=== PATIENT | female | born 1940 | race Caucasian/White ===

== ENCOUNTER → 2016-05-19 | Outpatient (CLI) | payer OTHER ==
--- NOTE | 2016-05-19 18:17 | DX ---
Right 5th Toe (3 Views, at 2:13 p.m.) Clinical History: 75-year-old female presenting for follow up of a 5th toe fracture sustained on 2015. ICD-10 Diagnostic Code: S92.501A. Comparison Study: Right 5th toe, dated March 31, 2016. Findings: There has been periosteal resorption along the site of the previously-noted transverse nond isplaced fracture of the midportion of the distal phalanx of the 5th toe. There is no bridging callus . There is some mild narrowing and subchondral sclerosis at the 5th toe interphalangeal joint. There some mild soft tissue swelling. Impression: Further periosteal resorption involving the previously-noted nondisplaced fracture throu gh the midportion of the 5th toe distal phalanx, with no bridging callus, compared to March 31 16.
== END ==
LOC: BMCIMAGING 14:16
PROVIDERS: ATTEND Podiatrist Foot & Ankle Surgery
DX: S92.504D Nondisplaced unspecified fracture of right lesser toe(s), subsequent encounter for fracture with routine healing (principal)

== ENCOUNTER → 2016-07-18 | Outpatient (CLI) | payer OTHER | LOC: FIMAGING 12:50 | PROVIDERS: ATTEND Orthopaedic Surgery | DX: Z01.818 Encounter for other preprocedural examination (principal); M16.0 Bilateral primary osteoarthritis of hip; M51.36 Other intervertebral disc degeneration, lumbar region; M51.37 Other intervertebral disc degeneration, lumbosacral region; D25.9 Leiomyoma of uterus, unspecified ==

== ENCOUNTER → 2016-07-30 | Outpatient (CLI) | payer OTHER | LOC: BHFA 13:45 | PROVIDERS: ATTEND Internal Medicine Interventional Cardiology | DX: Z01.810 Encounter for preprocedural cardiovascular examination (principal); I48.91 Unspecified atrial fibrillation; E78.5 Hyperlipidemia, unspecified ==

== ENCOUNTER 2016-08-11 08:47 | Inpatient (IN) | payer OTHER ==
[~2016-08-11 08:47] MED LIST: ACETAMINOPHEN 325 MG TAB PO ONE; CEFAZOLIN 2 GM/DEXTR 100 ML IV ONE; CHLORHEXIDINE GLUC HIBICLENS 118 ML BTL TP ONE; FAMOTIDINE 20 MG TAB PO ONE; ROPI/epiNEPH/KETOROLAC/morphINE JOINT COCKTAIL IU ONE
[2016-08-11] MEDS ORDERED: ceFAZolin 1 GM/5 ML SYR ONE (11:42)
[2016-08-11] MEDS ORDERED: CITRATE DEXTROSE SOLN 500 ML BAG ONE (11:42)
[2016-08-11] MEDS ORDERED: FAMOTIDINE 20 MG TAB ONE (11:57)
[2016-08-11] MEDS ORDERED: CEFAZOLIN 2 GM/DEXTROSE/100 ML BAG IV ONE (11:57)
[2016-08-11] MEDS ORDERED: ACETAMINOPHEN 325 MG TAB ONE (11:57)
[2016-08-11] MEDS ORDERED: MIDAZOLAM 2 MG/2 ML VIAL ONE (12:23)
[2016-08-11] MEDS ORDERED: fentaNYL 100 MCG/2 ML INJ ONE (12:29)
[2016-08-11] MEDS ORDERED: PROPOFOL/EMULSION 500 MG/50 ML BOTTLE IV ONE (12:29)
[2016-08-11] MEDS ORDERED: PROPOFOL 200 MG/20 ML VIAL ONE (12:29)
[2016-08-11] MEDS ORDERED: DEXAMETHASONE 4 MG/ML VIAL ONE ×2 (12:29)
[2016-08-11] MEDS ORDERED: LIDOCAINE 2% 100 MG/5 ML SYR ONE (12:31)
[2016-08-11] MEDS ORDERED: METOCLOPRAMIDE 10 MG/2 ML VIAL IVP PRN (15:37)
[2016-08-11] MEDS ORDERED: diphenhydrAMINE 25 MG CAP PO PRN (15:37)
[2016-08-11] MEDS ORDERED: LACTULOSE 20 GM/30 ML UDCUP PO PRN (15:37)
[2016-08-11] MEDS ORDERED: CYCLOBENZAPRINE 10 MG TAB PO PRN (15:37)
[2016-08-11] MEDS ORDERED: DIAZEPAM 5 MG TAB PO PRN (15:37)
[2016-08-11] MEDS ORDERED: TEMAZEPAM 15 MG CAP PO PRN (15:37)
[2016-08-11] MEDS ORDERED: PROMETHAZINE HCL 25 MG SUPPR PR PRN (15:37)
[2016-08-11] MEDS ORDERED: POLYETHYLENE GLYCOL 3350 17 GM PKT PO PRN (15:37)
[2016-08-11] MEDS ORDERED: PHARMACY PAIN CONSULT 1 EA MISC PRN (15:37)
[2016-08-11] MEDS ORDERED: MAGNESIUM HYDROXIDE 30 ML UDCUP PO PRN (15:37)
[2016-08-11] MEDS: LR 1,000 ML IV SCH ×2 (17:19→20:57)
[2016-08-11] MEDS: ACETAMINOPHEN 325 MG TAB PO SCH ×2 (17:20→22:47)
[2016-08-11] MEDS ORDERED: ATORVASTATIN CALCIUM 20 MG TAB PO SCH (18:00)
[2016-08-11] MEDS: oxyCODONE IR 5 MG TAB PO PRN ×2 (18:46→22:05)
[2016-08-11] MEDS: SENNOSIDES/DOCUSATE SODIUM TAB PO SCH (20:57)
[2016-08-11] MEDS: ceFAZolin 2 GM/DEXTROSE 100 ML IV SCH (20:57)
[2016-08-11] MEDS: FAMOTIDINE 20 MG TAB PO SCH (20:57)
[2016-08-11] MEDS: ASPIRIN 325 MG TAB PO SCH (20:57)
[2016-08-12] MEDS: ACETAMINOPHEN 325 MG TAB PO SCH ×2 (05:01→12:13)
[2016-08-12] MEDS: ceFAZolin 2 GM/DEXTROSE 100 ML IV SCH (05:01)
--- NOTE | 2016-08-12 08:06 | PDIAF ---
- Diagnosis Diagnosis: left hip djd Code Status: Full Code - Medication Management Discharge Medications: Medications to Continue on Transfer Simvastatin [Zocor 40 mg] 40 mg PO DAILY@18 06/23/14 [Last Taken Unknown] Aspirin [Aspirin 81mg (*)] 81 mg PO DAILY 07/14/16 [Last Taken Unknown] Cholecalciferol Vit D3 [Vitamin D3 2000 units tab (OTC)] 2,000 units PO DAILY [Last Taken Unknown] Cyanocobalamin [Vitamin B12 (*)] 2,500 mcg PO Q3D 07/14/16 [Last Taken Unknown] Multivitamins [Multivitamin (*)] 1 each PO DAILY 07/14/16 [Last Taken Unknown] Aspirin [Aspirin 325 mg (*)] 325 mg PO DAILY #0 tab 08/12/16 [Last Taken Unknown ] oxyCODONE IR [Oxycodone Ir (*)] 5 - 10 mg PO Q3HRS PRN #50 tab 08/12/16 [Last Taken Unknown] Discharge Medications: Refer to the Discharge Home Medication list for PRN reason. - Orders Services needed: Physical Therapy Diet Recommendation: no restrictions on diet Diet Texture: Regular Texture Diet Activity/Weight Bearing Restrictions: wbat. anterior hip precautions. daily dressing changes #. may shower without bandage. no soaking. leonidas hose x 2 weeks. seek attn for increasing pain, redness, drainage or other focal complaint. f/u at two weeks - Follow Up Care Current Providers and Referrals: Lucero Liu MD [Primary Care Provider] -
[2016-08-12] MEDS: ASPIRIN 325 MG TAB PO SCH (08:45)
[2016-08-12] MEDS: SENNOSIDES/DOCUSATE SODIUM TAB PO SCH (08:46)
[2016-08-12] MEDS: FAMOTIDINE 20 MG TAB PO SCH (08:46)
--- NOTE | 2016-08-12 08:48 | GDS ---
[f rep st] DISCHARGE SUMMARY ADMITTING DIAGNOSIS: Left hip degenerative joint disease. DISCHARGE DIAGNOSIS: Left hip degenerative joint disease. PROCEDURE: Left total hip arthroplasty. INDICATIONS: The patient is a 76-year-old woman with end-stage arthritis to her left hip. Clinical and radiographic features are consistent with this. She has failed all attempts at conservative ma nagement. I have, therefore, recommended total hip replacement. She understood the risks, benefits , alternatives, and wished to proceed. Written consent was signed and placed in the patient's chart . HOSPITAL COURSE: The patient was admitted overnight after uncomplicated total hip arthroplasty. Sh ava tolerated the procedure well. At the time of discharge, she is tolerating an oral diet. Her pain is well controlled on oral medicines. She has been cleared by physical therapy. Dressing is clean , dry, and intact. She has no calf swelling or tenderness. X-rays are stable, concentrically reduc ed. No fracture or lucency. DISCHARGE ACTIVITY: She is weightbearing as tolerated. Range of motion as tolerated with anterior hip precautions. Daily dressing changes. May shower without the bandage. No soaking or immersion. CHARLENE hose x2 week. DISCHARGE MEDICATIONS: Oxycodone 5-10 mg q.6 hours p.r.n. pain. Aspirin 325 mg p.o. daily for 6 we eks. DISCHARGE INSTRUCTIONS: CHARLENE hose for 2 weeks. Follow up at 2 weeks. /[id number]/MODL
[2016-08-12] MEDS ORDERED: CHOLECALCIFEROL VIT D3 2,000 UNITS TAB/CAP PO SCH (09:00)
[2016-08-12 11:43] LABS: HEMATOCRIT 35.9 % (38.0-47.0); HEMOGLOBIN 11.8 g/dL (12.6-16.3)
[2016-08-12 12:28] VITALS: BP 102/64; PULSE 71; RESP 18; TEMP 96.5; O2SAT 94
== END 2016-08-12 15:09 | disposition home health service (06) | DRG 470 ==
LOC: F3N 08:47
PROVIDERS: ADMIT Orthopaedic Surgery; ATTEND Orthopaedic Surgery
PROC: 0SRB04Z Replacement of Left Hip Joint with Ceramic on Polyethylene Synthetic Substitute, Open Approach (ICD-10-PCS; principal; 2016-08-11 12:30)
DX: M16.12 Unilateral primary osteoarthritis, left hip (principal); Z96.653 Presence of artificial knee joint, bilateral; Z85.3 Personal history of malignant neoplasm of breast; E78.5 Hyperlipidemia, unspecified; I25.10 Atherosclerotic heart disease of native coronary artery without angina pectoris; G47.33 Obstructive sleep apnea (adult) (pediatric)
CPT/HCPCS: 97116-GP; 97161-GP; 97165-GO; G8978-GP-CI; G8979-GP-CI; G8980-GP-CI; G8987-GO-CJ; G8988-GO-CJ; G8989-GO-CJ; J0171; J0690; J1100; J1885; J2001; J2250; J2704; J2795; J3010; J7060

== ENCOUNTER → 2016-09-25 | Outpatient (CLI) | payer OTHER | LOC: BMCIMAGING 08:58 | PROVIDERS: ATTEND Podiatrist Foot & Ankle Surgery | DX: S92.501D Displaced unspecified fracture of right lesser toe(s), subsequent encounter for fracture with routine healing (principal); Z96.642 Presence of left artificial hip joint ==

== ENCOUNTER → 2016-10-31 | Outpatient (CLI) | payer OTHER ==
[2016-07-22 15:22] LABS: % IMMATURE GRANULYOCYTES 0.2 % (0.0-1.1); ABSOLUTE IMMATURE GRANULOCYTES 0.01 10^3/uL (0.00-0.10); ADD DIFF? NO; ADD MORPH? NO; ADD SCAN? NO; ATYPICAL LYMPHOCYTE FLAG 0 (0-99); FRAGMENT RBC FLAG 0 (0-99); HEMATOCRIT 42.7 % (38.0-47.0); HEMOGLOBIN 14.1 g/dL (12.6-16.3); LEFT SHIFT FLG 0 (0-99); LIPEMIA HEMOLYSIS FLAG 80 (0-99); MEAN CELL HEMOGLOBIN 26.6 pg (27.9-34.1); MEAN CELL VOLUME 80.4 fL (81.5-99.8); MEAN PLATELET VOLUME 10.4 fL (8.7-11.7); PLATELET CLUMPS FLAG 0 (0-99); PLATELET COUNT 224 10^3/uL (150-400); RED BLOOD CELL COUNT 5.31 10^6/uL (4.18-5.33); RED CELL DISTRIBUTION WIDTH 15.3 % (11.5-15.2)
[~2016-10-31] MED LIST changes: -ACETAMINOPHEN 325 MG TAB PO ONE; +ACETAMINOPHEN 325 MG TAB PO SCH; +ASPIRIN 325 MG TAB PO SCH; +BISACODYL 10 MG SUPP PR PRN; -CEFAZOLIN 2 GM/DEXTR 100 ML IV ONE; -CHLORHEXIDINE GLUC HIBICLENS 118 ML BTL TP ONE; +CYCLOBENZAPRINE 10 MG TAB PO PRN; +DIAZEPAM 5 MG TAB PO PRN; +DIPHENOXYLATE/ATROPINE LOMOTIL 1 TAB PO PRN; -FAMOTIDINE 20 MG TAB PO ONE; +FAMOTIDINE 20 MG TAB PO SCH; +LACTULOSE 20 GM/30 ML UDCUP PO PRN; +LR 1,000 ML IV SCH; +MAGNESIUM HYDROXIDE 30 ML UDCUP PO PRN; +METOCLOPRAMIDE 10 MG/2 ML VIAL IVP PRN; +ONDANSETRON 4 MG/2 ML VIAL IVP PRN; +ONDANSETRON DISINTEGRATING 4 MG TAB PO PRN; +PHARMACY PAIN CONSULT 1 EA MISC PRN; +POLYETHYLENE GLYCOL 3350 17 GM PKT PO PRN; +PROMETHAZINE HCL 25 MG SUPPR PR PRN; -ROPI/epiNEPH/KETOROLAC/morphINE JOINT COCKTAIL IU ONE; +SENNOSIDES/DOCUSATE SODIUM TAB PO SCH; +TEMAZEPAM 15 MG CAP PO PRN; +ceFAZolin 2 GM/DEXTROSE 100 ML IV SCH; +diphenhydrAMINE 25 MG CAP PO PRN; +oxyCODONE IR 5 MG TAB PO PRN; +traMADol 50 MG TAB PO PRN
== END ==
LOC: FIMAGING 11:20
PROVIDERS: ATTEND Internal Medicine
DX: Z12.31 Encounter for screening mammogram for malignant neoplasm of breast (principal); Z85.3 Personal history of malignant neoplasm of breast; Z92.3 Personal history of irradiation
CPT/HCPCS: G0202

== ENCOUNTER → 2016-11-10 | Outpatient (CLI) | payer OTHER | LOC: BMCIMAGING 09:21 | PROVIDERS: ATTEND Orthopaedic Surgery | DX: Z47.1 Aftercare following joint replacement surgery (principal); Z96.642 Presence of left artificial hip joint; M16.11 Unilateral primary osteoarthritis, right hip ==

== ENCOUNTER → 2017-01-27 | Outpatient (CLI) | payer OTHER | LOC: FIMAGING 09:15 | PROVIDERS: ATTEND Internal Medicine Rheumatology | DX: M43.12 Spondylolisthesis, cervical region (principal); M48.02 Spinal stenosis, cervical region; M46.92 Unspecified inflammatory spondylopathy, cervical region ==

== ENCOUNTER → 2017-02-04 | Outpatient (CLI) | payer OTHER | LOC: BMCIMAGING 10:41 | PROVIDERS: ATTEND Orthopaedic Surgery | DX: Z47.1 Aftercare following joint replacement surgery (principal); Z96.642 Presence of left artificial hip joint ==

== ENCOUNTER → 2017-04-15 | Outpatient (CLI) | payer OTHER | LOC: FIMAGING 15:44 | PROVIDERS: ATTEND Neurological Surgery | DX: M43.19 Spondylolisthesis, multiple sites in spine (principal); M50.83 Other cervical disc disorders, cervicothoracic region ==

== ENCOUNTER → 2017-05-12 | Outpatient (CLI) | payer OTHER, MEDICARE | LOC: FIMAGING 10:14 | PROVIDERS: ATTEND Physician Assistant | DX: M51.26 Other intervertebral disc displacement, lumbar region (principal); M51.27 Other intervertebral disc displacement, lumbosacral region; M46.97 Unspecified inflammatory spondylopathy, lumbosacral region; M48.07 Spinal stenosis, lumbosacral region; M48.061 Spinal stenosis, lumbar region without neurogenic claudication; M46.92 Unspecified inflammatory spondylopathy, cervical region ==

== ENCOUNTER → 2017-08-12 | Outpatient (CLI) | payer OTHER, MEDICARE | LOC: BMCIMAGING 08:38 | PROVIDERS: ATTEND Orthopaedic Surgery | DX: M16.11 Unilateral primary osteoarthritis, right hip (principal) ==

== ENCOUNTER → 2017-08-19 | Outpatient (CLI) | payer OTHER, MEDICARE | LOC: BMCIMAGING 08:39 | PROVIDERS: ATTEND Orthopaedic Surgery | PROC: 3E0U33Z Introduction of Anti-inflammatory into Joints, Percutaneous Approach (ICD-10-PCS; principal; 2017-08-19) | DX: M25.561 Pain in right knee (principal); R93.6 Abnormal findings on diagnostic imaging of limbs; M25.551 Pain in right hip; Z96.651 Presence of right artificial knee joint ==

== ENCOUNTER → 2017-11-02 | Outpatient (CLI) | payer OTHER, MEDICARE | LOC: FIMAGING 10:50 | PROVIDERS: ATTEND Internal Medicine | DX: Z12.31 Encounter for screening mammogram for malignant neoplasm of breast (principal); R92.8 Other abnormal and inconclusive findings on diagnostic imaging of breast; R92.1 Mammographic calcification found on diagnostic imaging of breast; Z85.3 Personal history of malignant neoplasm of breast; Z98.890 Other specified postprocedural states; Z92.3 Personal history of irradiation ==

== ENCOUNTER → 2017-11-12 | Outpatient (CLI) | payer OTHER, MEDICARE | LOC: FIMAGING 10:09 | PROVIDERS: ATTEND Internal Medicine | DX: N63.13 Unspecified lump in the right breast, lower outer quadrant (principal); R92.0 Mammographic microcalcification found on diagnostic imaging of breast ==

== ENCOUNTER → 2017-11-25 | Outpatient (CLI) | payer OTHER, MEDICARE ==
[~2017-11-25] MED LIST changes: -ACETAMINOPHEN 325 MG TAB PO SCH; -ASPIRIN 325 MG TAB PO SCH; -BISACODYL 10 MG SUPP PR PRN; +BUPIVACAINE 0.5% 10 ML SDV ONE; -CYCLOBENZAPRINE 10 MG TAB PO PRN; -DIAZEPAM 5 MG TAB PO PRN; -DIPHENOXYLATE/ATROPINE LOMOTIL 1 TAB PO PRN; -FAMOTIDINE 20 MG TAB PO SCH; -LACTULOSE 20 GM/30 ML UDCUP PO PRN; +LIDOCAINE 1% 300 MG/30 ML SDV ONE; -LR 1,000 ML IV SCH; -MAGNESIUM HYDROXIDE 30 ML UDCUP PO PRN; -METOCLOPRAMIDE 10 MG/2 ML VIAL IVP PRN; -ONDANSETRON 4 MG/2 ML VIAL IVP PRN; -ONDANSETRON DISINTEGRATING 4 MG TAB PO PRN; -PHARMACY PAIN CONSULT 1 EA MISC PRN; -POLYETHYLENE GLYCOL 3350 17 GM PKT PO PRN; -PROMETHAZINE HCL 25 MG SUPPR PR PRN; -SENNOSIDES/DOCUSATE SODIUM TAB PO SCH; -TEMAZEPAM 15 MG CAP PO PRN; +THROMBIN (BOVINE) 5,000 UNIT VIAL TP ONE; -ceFAZolin 2 GM/DEXTROSE 100 ML IV SCH; -diphenhydrAMINE 25 MG CAP PO PRN; -oxyCODONE IR 5 MG TAB PO PRN; -traMADol 50 MG TAB PO PRN
== END ==
LOC: FIMAGING 07:31
PROVIDERS: ATTEND Internal Medicine
PROC: 0HBT3ZX Excision of Right Breast, Percutaneous Approach, Diagnostic (ICD-10-PCS; principal; 2017-11-25)
PROC: BH00ZZZ Plain Radiography of Right Breast (ICD-10-PCS; principal; 2017-11-25)
DX: N63.10 Unspecified lump in the right breast, unspecified quadrant (principal); Z85.3 Personal history of malignant neoplasm of breast; Z92.3 Personal history of irradiation

== ENCOUNTER 2018-01-26 08:25 | Observation (INO) | payer OTHER, MEDICARE ==
[2018-01-26] MEDS ORDERED: LR 1,000 ML IV ONE (08:54)
[2018-01-26] MEDS ORDERED: BUPIVACAINE 0.5% 30 ML SDV ONE (09:42)
[2018-01-26] MEDS ORDERED: BUPIVACAINE 0.25% 30 ML SDV ONE ×2 (09:43→13:10)
--- NOTE | 2018-01-26 10:55 | PDHPUP ---
History & Physical Update H&P update statement: This history and physical update is based on an assessment of the patient which was completed after admission or registration (within 24 hours), but prior to the surgery/procedure. H&P update: H&P reviewed & patient examined, no change in patient's condition since H&P completed
--- NOTE | 2018-01-26 10:58 | POSTOPPROG ---
Post Op Note Date of Operation: 01/26/18 Surgeon: Erasmo Pal Associate Professor Of Musicology: Yessenia Prather Anesthesiologist: Jose Francisco Warm Anesthesia: GET(General Endotracheal) Pre-op Diagnosis: Breast cancer Post-op Diagnosis: Same Procedure: Bilat mast with left ax SLNB, US guided PEC block - bilat Inf/Abcess present in the surg proc area at time of surgery?: No EBL: Minimal Drains: Elmer Cha Specimen(s): bilat breast, left nodes
[2018-01-26] MEDS ORDERED: ZOLPIDEM TARTRATE 5 MG TAB PO PRN (11:00)
[2018-01-26] MEDS ORDERED: ONDANSETRON 4 MG/2 ML VIAL IVP PRN ×2 (11:00→13:37)
[2018-01-26] MEDS ORDERED: HYDROCODONE/APAP 5/325 TAB PO PRN (11:00)
[2018-01-26] MEDS ORDERED: ACETAMINOPHEN 325 MG TAB PO PRN (11:00)
--- NOTE | 2018-01-26 11:00 | PDANEPAE ---
ANE History of Present Illness 77 year old with breast ca ANE Past Medical History - Cardiovascular History Hx Hypertension: No Hx Arrhythmias: No Hx Chest Pain: No Hx Coronary Artery / Peripheral Vascular Disease: No Hx CHF / Valvular Disease: No Hx Palpitations: No Cardiovascular History Comment: pre-clinical cad - followed by [facility] , "have funny type of EKG" described as inverted P wave - Pulmonary History Hx COPD: No Hx Asthma/Reactive Airway Disease: No Hx Recent Upper Respiratory Infection: No Hx Oxygen in Use at Home: No Hx Sleep Apnea: No Sleep Apnea Screening Result - Last Documented: Positive Pulmonary History Comment: "borderline LEMUEL" - states was thought possibly years ago and that was what was causing her night headaches but worked with Dr. Liu and was determined it was not and an issue. - Neurologic History Hx Cerebrovascular Accident: No Hx Seizures: No Hx Dementia: No Neurologic History Comment: Gets headaches at night which wake her up. States no cause has been found. - Endocrine History Hx Diabetes: No - Renal History Hx Renal Disorders: No - Liver History Hx Hepatic Disorders: No - Neurological & Psychiatric Hx Hx Neurological and Psychiatric Disorders: No Neurological / Psychiatric History Comment: NIGHT TIME HEADACHES USES OXYGEN - Cancer History Hx Cancer: Yes Cancer History Comment: BREAST - Congenital Disorder History Hx Congenital Disorders: No - GI History Hx Gastrointestinal Disorders: No - Other Health History Other Health History: wears glasses. arthritis - Chronic Pain History Chronic Pain: No - Surgical History Prior Surgeries: Left BETH 08/2016. X 3. RT BREAST LUMPECTOMY. PARATHYROIDECTOMY. ELISHA CATARACT. LT MACULAR REPAIR. ELISHA EYELID. Bilateral shoulder scopes, rotator cuff repair on tight. ELISHA KNEE REPLACEMENT. bilateral toe surgery ANE Review of Systems Review of systems is: negative Review of Systems: - Exercise capacity METS (RN): 4 METS ANE Patient History - Allergies Allergies/Adverse Reactions: No Known Allergies Allergy (Verified 01/19/18 15:19) - Home Medications Home Medications: Simvastatin [Zocor 40 mg] 40 mg PO HS 06/23/14 [Last Taken 01/25/18] Cholecalciferol Vit D3 [Vitamin D3 2000 units tab (OTC)] 2,000 units PO DAILY [Last Taken 01/19/18] Cyanocobalamin [Vitamin B12 (*)] 1,000 mcg PO DAILY 07/14/16 [Last Taken ] Naproxen Sodium [Aleve 220 MG (*)] 220 mg PO BID PRN 01/25/18 [Last Taken ] - NPO status NPO Since - Liquids (Date): 01/26/18 NPO Since - Liquids (Time): 06:40 NPO Since - Solids (Date): 01/25/18 NPO Since - Solids (Time): 18:00 - Anes Hx Anes Hx: no prior problems - Smoking Hx Smoking Status: Former smoker - Family Anes Hx Family Hx Anesthesia Complications: none ANE Labs/Vital Signs - Vital Signs Blood Pressure: 140/87 Heart Rate: 74 Respiratory Rate: 22 O2 Sat (%): 96 Height: 167.64 cm Weight: 73.028 kg ANE Physical Exam - Airway Neck exam: FROM Mallampati Score: Class 1 Mouth exam: normal dental/mouth exam - Pulmonary Pulmonary: no respiratory distress - Cardiovascular Cardiovascular: regular rate and rhythym - ASA Status ASA Status: II ANE Anesthesia Plan Anesthesia Plan: GA w LMA
[2018-01-26] MEDS ORDERED: NAPROXEN SODIUM 220 MG TAB PO PRN (11:02)
[2018-01-26] MEDS ORDERED: PROPOFOL 200 MG/20 ML VIAL ONE (11:27)
[2018-01-26] MEDS ORDERED: fentaNYL 250 MCG/5 ML INJ ONE (11:27)
[2018-01-26] MEDS ORDERED: fentaNYL 100 MCG/2 ML INJ ONE ×2 (11:27→13:48)
[2018-01-26] MEDS ORDERED: NALOXONE HCL 0.4 MG/ML INJ IVP PRN (13:37)
[2018-01-26] MEDS ORDERED: PROMETHAZINE HCL 25 MG/ML INJ IVP PRN (13:37)
--- NOTE | 2018-01-26 13:38 | POSTANESTH ---
Post Anesthetic Evaluation Cardiovascular Status: Normal, Stable, Tx Over/Under Hydration Level of Consciousness/Mental Status: Can Participate in Eval Pain Control: Adequate, Prn Tx Ordered Nausea/Vomiting Control: Adequate, Prn Tx Ordered Complications Possibly Related to Anesthesia: None Noted
[2018-01-26] MEDS: fentaNYL 100 MCG/2 ML INJ IVP PRN ×3 (13:50→14:17)
[2018-01-26] MEDS ORDERED: ONDANSETRON 4 MG/2 ML VIAL ONE (13:54)
[2018-01-26] MEDS ORDERED: HYDROmorphONE/DILAUDID 2 MG/ML INJ ONE (14:22)
[2018-01-26] MEDS ORDERED: HYDROmorphONE/DILAUDID 2 MG/ML INJ IVP PRN (14:30)
--- NOTE | 2018-01-26 15:13 | ASMTCMCOM ---
CM Note CM Note Notes: Patient chart reviewed for dc planning purposes. She is 77 year old female s/p bilateral mastectomies. Needs TBD. Plan: TBD Date Signed: 01/26/2018 03:13 PM Electronically Signed By:Mami West RN
[2018-01-26] MEDS: IBUPROFEN 600 MG TAB PO SCH ×2 (16:23→22:54)
--- NOTE | 2018-01-26 17:19 | SOAPPROG ---
SOAP Progress Note Assessment/Plan: Assessment:postop check - no complaints. min pain. MEERA sang. doing well. ambulate. anticipate DC in am. Plan: 01/26/18 17:18 Objective: Vital Signs Temp Pulse Resp BP Pulse Ox 36.9 C 67 18 111/66 93 01/26/18 15:04 01/26/18 16:08 01/26/18 16:08 01/26/18 16:08 01/26/18 16:08 01/25/18 01/26/18 01/27/18 05:59 05:59 05:59 Output Total 100 Balance -100 ICD10 Worksheet Patient Problems: Problems Problem Status Onset Breast cancer Acute - ICD10 Problem Qualifiers (1) Breast cancer
--- NOTE | 2018-01-27 04:00 | GOP ---
DATE OF OPERATION: 01/26/2018 SURGEON: Erasmo Pal MD HEAD BANDER AND LINER OPERATOR: Yessenia Prather PA-C. ANESTHESIA: General. ANESTHESIOLOGIST: Basilio Burnette MD. PREOPERATIVE DIAGNOSIS: 1. Right breast carcinoma. 2. Suspicious left breast lesion. POSTOPERATIVE DIAGNOSIS: 1. Right breast carcinoma. 2. Suspicious left breast lesion. PROCEDURE PERFORMED: 1. Bilateral simple mastectomy with left axillary sentinel node biopsy. 2. Ultrasound guided pec 1 and pec 2 nerve blocks. FINDINGS: See below. INDICATIONS: 77-year-old female with a remote history of right breast carcinoma , status post prior lumpectomy with axillary lymph node dissection and radiation therapy. She presents with a new right breast carcinoma as well as suspicious left breast abnormality on preoperative MRI. She has opted to undergo bilateral mastectomies at this time with left axillary sentinel node sampling. Preoperative imaging shows no other suspicious metastatic areas. Additional right axillary sampling is not being attempted as a result. The risks and benefits were explained including bleeding, infection, tumor recurrence, need for additional postoperative therapy, skin flap necrosis as well as others. All questions were answered. She desires to proceed. A surgical lead is standard, necessary and customary for the safe performance of this procedure. DESCRIPTION OF PROCEDURE: General anesthesia was induced upon returning from left breast lymphoscintigraphy. Bilateral breasts were elliptically incised. The right breast incorporated the prior upper outer quadrant incision beneath the axilla. Skin flaps were created to the level of the sternum, clavicle, inframammary fold as well as latissimus dorsi muscle laterally. The breast envelopes were peeled from lateral to medial and taken high up into the axillary tails of Santos. The right had minimal tissue in the upper outer quadrant and notable scarification at this region from prior treatment. The skin was easily able to be from the chest wall maintaining vascularity intact. Specimens were tagged for orientation and sent for permanent specimen processing. The left axilla was opened. A solitary hot node measuring 1200 units on the gamma counter was identified. This was removed from the field. A large firm adjacent node was also removed and sent as a separate specimen. Background activity was all less than 50 units. No suspicious palpable adenopathy was present. Satisfactory hemostasis was assured throughout bilateral breast envelopes. The wounds were closed in layers over a 10 flat Elmer-Cha drains. Dermabond was applied. The left interpectoral plane was identified using ultrasound guidance postoperatively as was the serratus planes. Using 0.25% Marcaine with epinephrine, 30 mL was infiltrated at both sites bilaterally. The patient was extubated in the operating room and taken to Recovery uneventfully. /[id number]/MODL MTDD
[2018-01-27] MEDS: IBUPROFEN 600 MG TAB PO SCH (05:53)
[2018-01-27 07:28] VITALS: BP 99/63
[2018-01-27] MEDS ORDERED: CYANO/VITAMIN B12 1000 MCG TAB PO SCH (09:00)
[2018-01-27] MEDS ORDERED: CHOLECALCIFEROL VIT D3 2,000 UNITS TAB/CAP PO SCH (09:00)
[2018-01-27] MEDS ORDERED: ATORVASTATIN CALCIUM 20 MG TAB PO SCH (09:00)
--- NOTE | 2018-01-27 10:54 | ASMTLACE ---
LACE Length of stay for Answers: 1 day current admission Comorbidities - select Answers: Any tumor (including all that apply lymphoma or leukemia) Score: 3 Date Signed: 01/27/2018 10:53 AM Electronically Signed By:Mami West RN
--- NOTE | 2018-01-27 11:00 | ASMTCMCOM ---
CM Note CM Note Notes: Medically cleared by surgery for discharge to home. No current needs identified. Good support. CM available should needs arise. Plan: Home with family support. Date Signed: 01/27/2018 10:59 AM Electronically Signed By:Mami West RN
--- NOTE | 2018-01-27 13:32 | GDS ---
PROCEDURE DATE: January 26, 2018. PROCEDURE PERFORMED: Bilateral simple mastectomy with left axillary sentinel node biopsy. DISCHARGE SUMMARY: 77-year-old female with a remote history of right breast carcinoma, status post prior lumpectomy with axillary lymph node dissection and radiation therapy. She presents with a new right breast carcinoma as well as suspicious left breast abnormality. She underwent a bilateral simple mastectomy with left axillary sentinel lymph node biopsy on January 26, 2018. She had an uncomplicated postoperative course. She has been ambulating in the halls with no concern. Her pain has been well managed with ibuprofen only. Discharge to home today. She is to resume all her home medications. Wound care discussed with the patient. Activity as tolerated. Regular diet as tolerated. May shower. May continue ibuprofen for pain management. She will follow up in the office in 2 weeks. Drain care discussed with patient and her daughter. /[id number]/MODL MTDD
== END 2018-01-27 12:01 | disposition home or self-care (01) ==
LOC: F3N 08:25 → F1N 14:59
PROVIDERS: ADMIT Surgery; ATTEND Surgery
DX: C50.411 Malignant neoplasm of upper-outer quadrant of right female breast (principal); R92.8 Other abnormal and inconclusive findings on diagnostic imaging of breast
CPT/HCPCS: 19303; 38740; A9520; J1170; J2405; J2704; J3010

== ENCOUNTER → 2018-02-19 | Outpatient (CLI) | payer OTHER, MEDICARE | LOC: FIMAGING 09:04 | PROVIDERS: ATTEND Internal Medicine Hematology & Oncology | DX: Z13.820 Encounter for screening for osteoporosis (principal); M81.0 Age-related osteoporosis without current pathological fracture; Z78.0 Asymptomatic menopausal state ==